=== PATIENT | female | born 2000 | race Caucasian/White ===

== ENCOUNTER 2024-06-27 17:36 | Emergency (ER) | payer BC, SELFPAY ==
[2024-06-27 17:59] VITALS: BP 102/58; PULSE 68; RESP 14; TEMP 36.2; O2SAT 99; BMI 35.6
--- NOTE | 2024-06-27 18:28 | US_ITS ---
PROCEDURE INFORMATION: Exam: US , Transvaginal Exam date and time: 06/27/2024 7:05 PM Age: 23 years old Clinical indication: Lmp or gestational age (in weeks): 05/08/2024; Other: Nausea and vomiting; ; Additional info: Establish location LABS AND CLINICAL REPORTS: Last menstrual period start date: 05/08/2024 Gestational age (Established): 7 w 1 d Estimated due date (Established): 02/12/2025 TECHNIQUE: Imaging protocol: Real-time transvaginal obstetrical ultrasound of the maternal pelvis with image documentation. Transvaginal imaging was used for better evaluation of the fetus, adnexa, and/or cervix. COMPARISON: No relevant prior studies available. FINDINGS: Gestation: Cervantes living intrauterine gestation. Yolk sac measures 3.8 mm. heart rate: 163 bpm BIOMETRY: Gestational age (AUA): 7 w 4 d Estimated due date (AUA): 02/09/2025 [place] rump length (CRL): 12.35 mm. MATERNAL: Right ovary/adnexa: Right ovary measures 2.04 cm x 2.05 cm x 1.64 cm. Right ovarian volume is 3.59 mL. Left ovary/adnexa: Left ovary measures 3.6 cm x 2.43 cm x 2.07 cm. Left ovarian volume is 9.48 mL. IMPRESSION: Cervantes, living intrauterine gestation with estimated gestational age at 7 weeks 4 days.
--- NOTE | 2024-06-27 18:30 | [facility].EDGENADL ---
Discharge Plan Disposition Patient Disposition: Home, Self-Care Prescriptions Prescriptions: New Unisom (doxylamine) 25 mg tablet 12.5 mg PO Q8HP PRN (Reason: vomiting ) Qty: 12 0RF pyridoxine (vitamin B6) 10 mg tablet 10 mg PO TID PRN (Reason: vomiting ) Qty: 18 0RF nitrofurantoin monohyd/m-cryst [Macrobid] 100 mg capsule 100 mg PO BID 5 Days Qty: 10 0RF Rx Instructions: must administer with a meal/food Referrals Follow up/Referrals: Provider,Referral, MD [Primary Care Provider] - See instructions Activity Restrictions/Add. Instructions Additional Instructions/Restrictions: At this time it was felt you are safe to be discharged home. If new or worsening symptoms please do not hesitate to return the emergency department. Please take your medications as prescribed and follow-up with your OB as discussed. Clinical Impressions Clinical Impression: Vomiting affecting , Asymptomatic bacteriuria Instructions Patient Instructions: DI for Diarrhea and Traveler's Diarrhea -- Adult, DI for Diarrhea and Traveler's Diarrhea -- Child, DI for Nausea -- Adult, DI for Nausea -- Child Print Language Print Language: Eritrean Discharge ED Provider: Braulio Spears General Adult HPI General Chief complaint: Nausea/Vomiting/Diarrhea Stated complaint: nausea,fatigue Time Seen by Provider: 06/27/24 18:07 Mode of Arrival: Ambulatory Source of Information: Patient Description of Symptoms (Recalled from ER Triage Doc. by RN): 6-7 weeks . feels like she is deydrated. nausea and vomiting. History of Present Illness HPI narrative: Patient is a 23-year-old female G2, P0 EGA 6 weeks who presents emergency department for evaluation of vomiting. Patient has had nonbloody vomiting over the last few weeks and has progressed to the point where she is unable to tolerate p.o. intake. She feels a little bit lightheaded upon standing up. No vaginal bleeding. No location has been established thus far. No other acute complaints at this time. Previous abdominal surgical history includes cholecystectomy. No significant abdominal pain reported. No chest pain reported. No other acute complaints at this time. Please note that above description of symptoms, in this electronic medical record under categorization of recalled from ER triage doctor by RN are reflective of an initial nursing assessment, however, is not reflective of my full history and physical exam that was personally taken and clarified. Consequentially, this preceding description of symptoms, which may include the patient's categorized chief complaint in the EMR, do not reflect my personal clinical impression, and the ultimate description of history of present illness and patient stated complaints should be deferred to this section of the note. Unless stated otherwise or congruent with this section of the note, additional signs, symptoms, or incongruence should be interpreted as inaccurate with my clinical impression. Related Data Previous Rx's ?Medication ?Instructions ?Recorded doxylamine succinate 25 mg tablet 12.5 mg (1/2 x 25 mg) PO Q8HP PRN 06/27/24 (Unisom (doxylamine)) vomiting #12 tabs nitrofurantoin 100 mg PO BID bacteruria 5 days 06/27/24 monohydrate/macrocrystals 100 mg #10 caps capsule (Macrobid) pyridoxine (vitamin B6) 10 mg 10 mg PO TID PRN vomiting 06/27/24 tablet #18 tabs Allergies Allergy/AdvReac Type Severity Reaction Status Date / Time Unable to Assess Allergy Verified 11/17/17 15:23 [facility] Disclaimer: The information contained in this section may have been updated after the patient was seen, as this information can be updated by other users. Social History Smoking Status: Never smoker alcohol intake: never current occupational status: other Travel in the last 8 weeks: None ROS Obtained: Yes Systems reviewed as appropriate & no additional complaints except as documented Physical Exam General General appearance: alert and in no apparent distress Head Head exam: atraumatic and normocephalic Eye Eye exam: Present PERRL and EOMI ENT ENT exam: Present mucous membranes moist Neck Neck exam: Present normal inspection Chest Chest inspection: Present normal inspection and symmetric chest wall rise Respiratory Respiratory exam: Absent respiratory distress Cardiovascular Cardiovascular exam: Present regular rate and normal rhythm Abdominal Exam Abdominal exam: Present soft; Absent tenderness Extremities Exam Extremities exam: Present normal inspection Neurological Exam Neurological exam: Present alert Psychiatric Psychiatric exam: Present normal affect Skin Skin exam: Present warm and dry Medical Decision Making Medical Records Screening: Per USPSTF and CDC recommendations, given the prevalence of disease in our region, it is our hospital?s policy to screen for HIV and viral Hepatitis for all patients aged 18 and over and those with ongoing risk factors. Ahsan Inquiry Pt receiving controlled substance: No Vital Signs: 06/27/24 17:59 06/27/24 18:45 Temperature 97.1 F L Temperature Source Oral Pulse Rate 59 L Pulse Rate [Right] 68 Respiratory Rate 14 Blood Pressure 103/61 L Blood Pressure [Right Arm] 102/58 L Blood Pressure Mean [Right Arm] 72 Blood Pressure Source [Right Arm] Automatic Cuff Blood Pressure Position [Right Arm] Sitting 02 Sat by Pulse Oximetry 99 99 Oxygen Delivery Method Room Air Lab Data Lab Results 06/27/24 06:32: Urine Color Dark yellow, Urine Appearance Slightly cloudy, Urine pH 7.5, Ur Specific [place] 1.020, Urine Protein Trace, Urine Glucose (UA) Negative, Urine Ketones Negative, Urine Blood Negative, Urine Nitrate Negative, Urine Bilirubin Negative, Urine Urobilinogen 1.0, Ur Leukocyte Esterase Negative, Urine RBC Occasional, Urine WBC 10-20, Ur Squamous Epith Cells 10-20, Urine Bacteria 4+ 06/27/24 18:43: WBC 7.6, RBC 4.37, Hgb 13.4, Hct 38.8, MCV 88.8, MCH 30.7, MCHC 34.5, RDW 12.3, Plt Count 211, MPV 9.3, Neut % (Auto) 67.4, Lymph % (Auto) 25.0, [place] % (Auto) 6.3, Eos % (Auto) 0.8, Baso % (Auto) 0.4, Neut # (Auto) 5.1, Lymph # (Auto) 1.9, [place] # (Auto) 0.5, Eos # (Auto) 0.1, Baso # (Auto) 0.0, Sodium 138, Potassium 4.1, Chloride 106, Carbon Dioxide 25, Anion Gap 11.1, BUN 9, Creatinine 0.70, Estimated Creat Clear 173, Estimated GFR 103, Est GFR ( Amer) 124, Glucose 89, Calcium 9.0, Magnesium 1.7, Total Bilirubin 0.5, AST 43 H, ALT 46, Alkaline Phosphatase 62, Total Protein 7.0, Albumin 4.1, Globulin 2.9, Albumin/Globulin Ratio 1.4, Lipase 51, HCG, Quant [id number] H 06/27/24 18:43 06/27/24 18:43 Orders (Tests/Meds): ED MEDICATIONS Discontinued Medications Generic Name Dose Route Start Last Admin Trade Name Freq PRN Reason Stop Dose Admin Doxylamine Succinate/Pyridoxine 1 tab 06/27/24 18:29 06/27/24 18:57 Doxylamine 10mg/Pyridoxine 10mg Tablet PO 06/27/24 18:30 1 tab ONCE ONE Administration Lactated Ringer's 1,000 mls @ 999 mls/hr 06/27/24 18:28 06/27/24 18:52 Lactated Ringer's 1000 Ml Bag IV 06/27/24 19:28 999 mls/hr .Q1H1M ONE Administration ORDERS Category Date Time Status CBC w/Auto Diff [Complete Blood Count Auto Diff] Stat Lab 06/27/24 18:43 Completed CMP [Comprehensive Metabolic Panel] Stat Lab 06/27/24 18:43 Completed Free T4 (Free Thyroxine) Stat Lab 06/27/24 18:43 Received HCG,Quantitative Stat Lab 06/27/24 18:43 Completed Lipase Stat Lab 06/27/24 18:43 Completed MG [Magnesium] Stat Lab 06/27/24 18:43 Completed TSH [Thyroid Stimulating Hormone] Stat Lab 06/27/24 18:43 Received UA [Urinalysis and Microscopic] Stat Lab 06/27/24 06:32 Completed Urine Culture Stat Micro 06/27/24 06:32 Received US OB transvaginal Stat Ultrasound 06/27/24 18:28 Completed ECG Data Tracing #1: Independently inter by me rate 61, rhythm is regular, axis is normal, no ST elevation in anatomical contiguous leads, QTc 369, no high degree AV block, no dagger Q waves in the lateral leads, no evidence of Wellens, no preexcitation. Medical Decision Narrative: In summary patient is a 23-year-old female past medical history described above who presents emergency department for evaluation of vomiting in setting of . Patient is hemodynamically stable nontoxic-appearing upon arrival, afebrile. Differential includes related vomiting, pancreatitis, among others. Workup will be conducted with hematologic labs, urinalysis, quantitative hCG, transvaginal ultrasound to establish location. Initial inventions include Diclegis, crystalloid bolus. EKG will be obtained. Initial workup reviewed by me, hematologic labs are nonactionable no significant leukocytosis no SHONA or critical electrolyte abnormality elevated hCG quant as expected. Urinalysis interpreted by me, asymptomatic bacteriuria. Transvaginal ultrasound single intrauterine measuring 7 weeks 4 days. Patient underwent p.o. trial with successful. Given this patient will be discharged with a course of vitamin B6, doxylamine, Macrobid. First dose of Macrobid administered here. Patient was given return precautions verbalized understanding. Critical Care Critical Care Time Critical Care Time: No
[2024-06-27 18:37] LABS: Microscopic, Urine URINE MICROSCOPIC (MICROSCOPIC)
--- NOTE | 2024-06-27 18:39 | ECG_ITS ---
APPROVED REPORT Exam: Resting ECG HR:61 bpm ECG Measurements Heart Rate 61 AXES KS 135 P 25 QRSd 89 QRS 11 QT 366 T -6 QTc 369 Conclusion SINUS RHYTHM NORMAL ECG UNCONFIRMED REPORT Electronically signed by : MANDO GOLDSMITH, 06/28/2024 05:13:28
[2024-06-27 18:45] VITALS: BP 103/61; PULSE 59; O2SAT 99
[2024-06-27 18:45] LABS: Bilirubin,Urine Negative (Negative); Blood, Urine Negative (Negative); Glucose,Urine (UA) Negative (Negative); Ketones,Urine Negative (Negative); Leukocyte Esterase,Urine Negative (Negative); Nitrate,Urine Negative (Negative); PH,Urine 7.5 (5.0-8.5); Protein,Urine TRACE (Negative)
[2024-06-27 18:46] LABS: Appearance,Urine Slightly Cloudy (Clear); Color,Urine Dark Yellow (Yellow)
[2024-06-27 18:48] LABS: Basophils % 0.4 % (0.1-2.0); Eosinophils # 0.1 K/mm3 (0.0-0.4); Eosinophils % 0.8 % (0.1-12.0); Hematocrit 38.8 % (37.0-47.0); Hemoglobin 13.4 g/dL (12.2-16.2); Lymphocytes # 1.9 K/mm3 (0.7-4.5); Mean Corpuscular HGB Conc 34.5 g/dL (31.8-35.4); Mean Corpuscular Hemoglobin 30.7 pg (27.0-31.2); Mean Corpuscular Volume 88.8 fl (81-99); Mean Platelet Volume 9.3 fl (7.4-10.4); Monocytes # 0.5 K/mm3 (0.1-1.0); Monocytes % 6.3 % (1.7-9.3); Neutrophils # 5.1 K/mm3 (1.8-7.8); Neutrophils % 67.4 % (37.0-80.0); Platelet Count 211 K/mm3 (142-424); Red Blood Count 4.37 M/mm3 (4.20-5.40); Red Cell Distribution Width 12.3 % (11.5-17.5); White Blood Count 7.6 K/mm3 (4.8-10.8)
[2024-06-27] MEDS: LACTATED RINGERS 1000ML 1,000 ML 999 ML IV (18:52)
[2024-06-27] MEDS: DOXYLAMINE 10MG/PYRIDOXINE 10MG TABLET 1 TAB PO (18:57)
[2024-06-27 18:58] LABS: Albumin Level 4.1 g/dl (3.5-5.0); Chloride 106 mmol/L (98-107); Potassium 4.1 mmoL/L (3.5-5.1); Sodium 138 mmol/L (136-145)
[2024-06-27 19:00] LABS: Alanine Aminotransferase 46 U/L (12-78); Blood Urea Nitrogen 9 mg/dl (7-17); Creatinine Clearance Estimated 173 mL/min (50-200); Estimated Glomerular Filt Rate 103 ml/min (>60); GFR (African American) 124 ML/MIN (>60)
[2024-06-27 19:01] LABS: Albumin/Globulin Ratio 1.4 (1.1-1.8); Alkaline Phosphatase 62 U/L (38-126); Anion Gap 11.1 mEq/L (5-15); Aspartate Amino Transferase 43 U/L (14-36); Bilirubin,Total 0.5 mg/dl (0.2-1.3); Carbon Dioxide 25 mmol/L (22.0-30.0); Globulin 2.9 g/dL (1.3-3.2); Glucose 89 mg/dl (74-100); Lipase 51 U/L (23-300)
[2024-06-27 19:02] LABS: Magnesium 1.7 mg/dl (1.6-2.3)
[2024-06-27 19:22] LABS: Bacteria,Urine 4+ /lpf; RBC,Urine Occasional #/hpf (0-3)
[2024-06-27 20:07] LABS: HCG,Quantitative 89818 mIU/ml (0-5.42)
[2024-06-27 20:08] LABS: Thyroid Stimulating Hormone 0.35 uIU/mL (0.465-4.68)
[2024-06-27 20:28] LABS: Free T4 (Free Thyroxine) 1.07 ng/dl (0.78-2.19)
[2024-06-27 20:33] VITALS: BP 96/56; PULSE 70; RESP 16; TEMP 36.7; O2SAT 98
== END 2024-06-27 21:27 | disposition home or self-care (01) ==
PROVIDERS: Emergency Provider Emergency Medicine
DX: O21.9 Vomiting of pregnancy, unspecified (principal); R82.71 Bacteriuria; R42 Dizziness and giddiness; Z3A.01 Less than 8 weeks gestation of pregnancy
CPT/HCPCS: 76817; 80053; 81001; 83690; 83735; 84439; 84443; 84702; 85025; 87086; 93005; 96360; 99284; J7120